=== PATIENT | female | born 1975 | race Caucasian/White ===

== ENCOUNTER 2016-04-16 09:48 | Emergency (ER) | payer OTHER, MEDICARE ==
[~2016-04-16 09:48] MED LIST: AMITRIPTYLINE25 MG; AMITRIPTYLINE50 MG PO; ATARAX 25MG25 MG/TAB PO; BENADRYL25 MG PO; BENTYL20 MG PO; CARAFATE1 GM PO; DEPAKENE PO; ELITE MAGNESIUM1 TAB PO; FIORICET 325 MG1 TA1 PO; FIORICET1 CAP PO; FLOMAX 0.40.4 MG/CAP PO; FOSAMAX 70MG TA70 MG PO; FOSAMAX70 MG PO; LOMOTIL TAB 01 UDTAB PO; LOPERAMIDE2 MG PO; MASON NATURAL2000 IU PO; MEPERIDINE HCL PO; MIDRIN; NEXIUM 40MG40 MG PO; NORCO 325 MG-51 TAB PO; PHENERGAN 25 TA25 MG PO; PREDNISONE10 M1; PREDNISONE20 MG PO; PREMARIN1.25 MG PO; PROMETHAZINE12.5 M5 PO; SINGULAIR10 MG PO; SOMA350 MG PO; TOPAKAX; TYLENOL 650MG650 M2 PO; ULTRAM 50MG TAB50 MG PO
== END 2016-04-16 10:46 | disposition home or self-care (01) ==
LOC: ED 09:48
DX: G43.909 Migraine, unspecified, not intractable, without status migrainosus (principal); F17.210 Nicotine dependence, cigarettes, uncomplicated
CPT/HCPCS: J2175; J2550

== ENCOUNTER 2016-08-06 12:23 | Emergency (ER) | payer OTHER, MEDICARE ==
[~2016-08-06] VITALS: Ht 61 cm; Wt 52.3 kg
[2016-08-06] MEDS ORDERED: ENTYVIO300 MG IV (12:36)
[2016-08-06 14:03] VITALS: BP 129/93
== END 2016-08-06 14:05 | disposition home or self-care (01) ==
LOC: ED 12:23
DX: G43.919 Migraine, unspecified, intractable, without status migrainosus (principal); R11.0 Nausea
CPT/HCPCS: J2175; J2550

== ENCOUNTER 2016-10-31 14:12 | Emergency (ER) | payer OTHER, MEDICARE ==
[~2016-10-31] VITALS: Ht 157.5 cm; Wt 53.2 kg
[~2016-10-31 14:12] MED LIST changes: +ENTYVIO300 MG IV
[2016-10-31] MEDS ORDERED: DELTASONE20 M1 PO (14:25)
[2016-10-31 15:26] VITALS: BP 122/89
== END 2016-10-31 15:26 | disposition home or self-care (01) ==
LOC: ED 14:12
DX: G43.909 Migraine, unspecified, not intractable, without status migrainosus (principal); K51.90 Ulcerative colitis, unspecified, without complications
CPT/HCPCS: J2175; J2550

== ENCOUNTER 2017-01-30 16:11 | Emergency (ER) | payer OTHER, MEDICARE ==
[~2017-01-30] VITALS: Ht 160 cm; Wt 56.8 kg
[~2017-01-30 16:11] MED LIST changes: +DELTASONE20 M1 PO
[2017-01-30] MEDS ORDERED: BENTYL 10MG10 MG/CAP PO (16:54)
[2017-01-30 18:57] VITALS: BP 127/86
== END 2017-01-30 19:15 | disposition home or self-care (01) ==
LOC: ED 16:11
DX: R51 Headache (principal); G43.809 Other migraine, not intractable, without status migrainosus; Z87.11 Personal history of peptic ulcer disease
CPT/HCPCS: J1885; J2765

== ENCOUNTER → 2017-07-18 | Outpatient (CLI) | payer OTHER, MEDICARE ==
[~2017-07-18] MED LIST changes: +BENTYL 10MG10 MG/CAP PO
[2017-07-18 15:29] LABS: PROTHROMBIN TIME 11.7 SECONDS (9.0-12.0)
== END ==
LOC: LAB 13:46
PROVIDERS: Internal Medicine
DX: I82.A11 Acute embolism and thrombosis of right axillary vein (principal); Z79.01 Long term (current) use of anticoagulants

== ENCOUNTER 2017-07-31 12:56 | Emergency (ER) | payer OTHER, MEDICARE ==
[~2017-07-31] VITALS: Ht 157.5 cm; Wt 60.0 kg
[2017-07-31] MEDS ORDERED: XARELTO15 MG PO (13:08)
[2017-07-31 13:54] LABS: BASO # 0.1 (0.02-0.10); EOS # 0.4 (0.04-0.40); EOS % 4.9 % (1.0-5.0); HEMATOCRIT 37.2 % (37.0-47.0); HEMOGLOBIN 11.1 g/dL (12.5-16.0); LYMPH# 3.4 (1.50-4.00); MEAN CELL VOLUME 89 fl (78-100); MEAN CORPUSCULAR HEMOGLOBIN 27 pg (27-31); MEAN CORPUSCULAR HGB CONC 30 g/dL (33-37); MEAN PLATELET VOLUME 9.5 fl (7.4-10.4); MONO # 0.6 (0.20-0.80); NEU # 3.2 (1.40-6.50); PLATELET COUNT 356 K/mm3 (130-400); RED BLOOD COUNT 4.18 M/mm3 (4.10-5.30); RED CELL DISTRIBUTION WIDTH 13.5 % (11.5-14.5); WHITE BLOOD COUNT 7.6 K/mm3 (4.8-10.8)
[2017-07-31 14:07] LABS: ALBUMIN 3.6 g/dL (3.5-5.0); BUN/CREATININE RATIO 28.5 (6.0-26.0); CALCIUM 9.1 mg/dL (8.4-10.2); POTASSIUM 3.8 mmol/L (3.6-5.0); TOTAL BILIRUBIN 0.1 mg/dL (0.2-1.3); TOTAL PROTEIN 6.5 g/dL (6.3-8.2)
[2017-07-31] MEDS ORDERED: IPRATROPIUM BROM3 M1 IH (15:16)
[2017-07-31 15:33] VITALS: BP 124/85
== END 2017-07-31 15:20 | disposition home or self-care (01) ==
LOC: ED 12:56
PROVIDERS: Physician Assistant
DX: J06.9 Acute upper respiratory infection, unspecified (principal); J30.2 Other seasonal allergic rhinitis; Z87.01 Personal history of pneumonia (recurrent); R94.31 Abnormal electrocardiogram [ECG] [EKG]; Z79.01 Long term (current) use of anticoagulants

== ENCOUNTER → 2017-08-12 | Outpatient (CLI) | payer OTHER, MEDICARE ==
[~2017-08-12] VITALS: Ht 157.5 cm; Wt 60.0 kg
[~2017-08-12] MED LIST changes: +IPRATROPIUM BROM3 M1 IH; +XARELTO15 MG PO
[2017-08-12 15:44] VITALS: BP 147/101
== END ==
LOC: AMSURD 15:26
DX: I82.621 Acute embolism and thrombosis of deep veins of right upper extremity (principal)
CPT/HCPCS: J1650

== ENCOUNTER 2017-09-08 16:53 | Emergency (ER) | payer OTHER, MEDICARE ==
[~2017-09-08] VITALS: Wt 59.2 kg
[2017-09-08] MEDS ORDERED: WARFARIN SOD5 MG PO ×2 (17:07)
[2017-09-08 19:12] VITALS: BP 125/86
== END 2017-09-08 19:12 | disposition home or self-care (01) ==
LOC: ED 16:53
DX: G43.909 Migraine, unspecified, not intractable, without status migrainosus (principal)
CPT/HCPCS: J1885; J2175; J2550

== ENCOUNTER 2018-11-18 18:13 | Emergency (ER) | payer OTHER, MEDICARE ==
[~2018-11-18] VITALS: Ht 160 cm; Wt 59.1 kg
[~2018-11-18 18:13] MED LIST changes: +WARFARIN SOD5 MG PO
[2018-11-18] MEDS ORDERED: FLAGYL250 M1 PO (19:07)
[2018-11-18] MEDS ORDERED: PREDNISONE1 MG PO (19:08)
[2018-11-18] MEDS ORDERED: PREDNISONE 5MG5 MG (19:09)
[2018-11-18 21:32] VITALS: BP 114/85
== END 2018-11-18 21:32 | disposition home or self-care (01) ==
LOC: ED 18:13
DX: G43.909 Migraine, unspecified, not intractable, without status migrainosus (principal); R11.0 Nausea; Z79.01 Long term (current) use of anticoagulants
CPT/HCPCS: J1200; J1885; J2175; J2550

== ENCOUNTER → 2019-01-03 | Outpatient (CLI) | payer OTHER, MEDICARE ==
[~2019-01-03] MED LIST changes: +FLAGYL250 M1 PO; +PREDNISONE 5MG5 MG; +PREDNISONE1 MG PO
== END ==
LOC: LAB 10:28
DX: Z51.81 Encounter for therapeutic drug level monitoring (principal); Z79.899 Other long term (current) drug therapy